=== PATIENT | female | born 1995 | race Caucasian/White ===

== ENCOUNTER → 2016-06-04 | Outpatient (REF) | payer OTHER ==
[~2016-06-04] MED LIST: /AUGM875TA OR; /CELE20CA OR; ACET65TA OR; BIRTH CONTROL PILL PO; No Historical Meds; VICO5TAB OR
== END ==
LOC: M LAB REF 12:58
PROVIDERS: ATTEND Advanced Practice Midwife
DX: Z34.03 Encounter for supervision of normal first pregnancy, third trimester (principal)

== ENCOUNTER 2016-06-23 13:59 | Outpatient (CLI) | payer OTHER ==
[~2016-06-23] VITALS: Ht 175.3 cm; Wt 95.0 kg
[2016-06-23] MEDS ORDERED: PRENTAB55 PO (14:11)
[2016-06-23 14:41] VITALS: BP 112/61
[2016-06-23] MEDS ORDERED: PANTOPRAZOLE 20 MG TAB PO ONE (15:30)
== END 2016-06-23 17:00 | disposition home or self-care (01) ==
LOC: M LDO 13:59
PROVIDERS: ATTEND Advanced Practice Midwife
DX: O47.1 False labor at or after 37 completed weeks of gestation (principal); Z3A.38 38 weeks gestation of pregnancy

== ENCOUNTER 2016-06-23 22:27 | Inpatient (IN) | payer OTHER ==
[~2016-06-23] VITALS: Ht 175.3 cm; Wt 95.0 kg
[~2016-06-23 22:27] MED LIST changes: +PRENTAB55 PO
[2016-06-23] MEDS ORDERED: BUTORPHANOL 2 MG/ML INJ (J0595) IV ONE (23:15)
[2016-06-23] MEDS ORDERED: LACTATED RINGER'S 1000 ML IV ONE (23:15)
[2016-06-23] MEDS ORDERED: PROMETHAZINE INJ 25 MG/ML VIAL (J2550) IM ONE (23:15)
[2016-06-24] VITALS (26 sets, daily range): BP systolic 104–153; BP diastolic 56–84
[2016-06-24] MEDS ORDERED: PROMETHAZINE INJ 25 MG/ML VIAL (J2550) IV ONE (00:30)
[2016-06-24] MEDS ORDERED: LACTATED RINGER'S 1000 ML IV ONE (03:30)
[2016-06-24] MEDS ORDERED: OXYTOCIN 30 UNITS IN 0.9% NaCl 500ML IV BAG (J2590) As Ordered ONE (03:44)
[2016-06-24] MEDS ORDERED: FENTANYL 2MCG/ML ROPIVACAINE 0.2% NACL 250 ML CADD As Ordered ONE (03:44)
[2016-06-24 04:13] LABS: MEAN CORPUSCULAR HEMOGLOBIN 28.4 pg (27.0-33.0); MEAN CORPUSCULAR HGB CONC 32.1 g/dl (32.0-36.5); MEAN CORPUSCULAR VOLUME 88.4 fl (80.0-96.0); RED CELL DISTRIBUTION WIDTH 12.8 % (11.5-14.5); WHITE BLOOD COUNT 12.1 K/mm3 (4.0-10.0)
[2016-06-24] MEDS ORDERED: FENTANYL/ROPIVACAINE/NACL CADD 250 ML EPIDURAL SCH (05:30)
[2016-06-24] MEDS ORDERED: diphenhydrAMINE INJ 50MG/ML VIAL (J1200) IV PRN (05:30)
[2016-06-24] MEDS ORDERED: REFRIGERATOR IV KEYS XX PRN (05:30)
[2016-06-24] MEDS ORDERED: ONDANSETRON 4MG/2ML VIAL (J2405) IV PRN (05:30)
[2016-06-24] MEDS ORDERED: EPIDURAL/PCA KEYS XX PRN (05:30)
[2016-06-24] MEDS ORDERED: ePHEDrine SULFATE 25 MG/5 ML(5MG/ML) SYRINGE IV PRN (05:30)
[2016-06-24] MEDS ORDERED: LACTATED RINGER'S 1000 ML IV PRN (05:30)
[2016-06-24] MEDS ORDERED: EPIDURAL COMMENT XX SCH (05:30)
[2016-06-24] MEDS ORDERED: NALOXONE INJ 0.4 MG/1 ML VIAL (J2310) IV PRN (05:30)
[2016-06-24 07:20] LABS: CORD GAS ABE V -4.1; CORD GAS HCO3 V 21.9 MEQ/L; CORD GAS O2 SAT V 49.1 %; CORD GAS PCO2 V 43.4 mmHg; CORD GAS PH V 7.321 UNITS; CORD GAS PO2 V 22.3 mmHg; CORD GAS SBC V 19.9 MEQ/L; CORD GAS TCO2 V 23.2 MEQ/L
[2016-06-24 07:22] LABS: CORD GAS HCO3 A 19.6 MEQ/L; CORD GAS O2 SAT A 23.6 %; CORD GAS PCO2 A 48.3 mmHg; CORD GAS PH A 7.226 UNITS; CORD GAS SBC A 16.7 MEQ/L; CORD GAS TCO2 A 21.1 MEQ/L
--- NOTE | 2016-06-24 07:25 | HPE ---
DATE OF ADMISSION: Lottie is a 21-year-old 1, para 0 at 38-6/7 weeks gestation with an estimated date of confinement (EDC) of 07/02/2016 based on first trimester ultrasound. She presents to labor and delivery with a complaint of painful regular contractions about every 3-4 minutes, some scant bloody show. Denies leakage of fluid. Fetus has been active. care was initiated at [facility] in the first trimester. course has been uncomplicated. OBSTETRICAL HISTORY: Primigravida. OB LABS: Blood type A positive. Antibody screen negative. Rubella immune. VDRL nonreactive. Urine culture no growth. Hep B surface antigen negative. HIV negative. Hep C antibody nonreactive. Gonorrhea and chlamydia negative. Gestational diabetic screening 105. Group B Streptococcus (GBS) is negative. She did decline all genetic serum screening markers. PAST MEDICAL HISTORY: Childhood varicella. Abnormal Pap smear. SURGERIES: Appendectomy. Left shoulder. Colposcopy. FAMILY HISTORY: Noncontributory. SOCIAL HISTORY: The patient is single. The father of the baby is at bedside and supportive. She is a nonsmoker. Denies alcohol and drug use. She has a history of chlamydia. Her gonorrhea and chlamydia testing during was negative. She denies history of abuse; physical, sexual and emotional. CURRENT MEDICATIONS: Include vitamin ALLERGIES: No known drug allergies. OBJECTIVE: Temperature 98.3, pulse 73, respirations 18, blood pressure 121/60. Alert and oriented, crying, moaning, tensing with her contractions. heart rate 130, moderate variability, positive accelerations, negative decelerations. Mahesh every 2-3 minutes, per CHERELLE Temple, she is 5-6 cm dilated, 100% effaced, and 0 station with bulging bag of water. ASSESSMENT: Intrauterine at 38-6/7 weeks gestation. heart rate category 1, active labor. PLAN: Admit the patient to labor and delivery. Out of bed ad mamta. Labs. IV fluid bolus. The patient does desire an epidural for her labor coping. I do anticipate a normal spontaneous vaginal delivery.
[2016-06-24] MEDS ORDERED: DOCUSATE SODIUM 100 MG CAP PO PRN (07:45)
[2016-06-24] MEDS ORDERED: ANUSOL HC CREAM 30GM TOP PRN (07:45)
[2016-06-24] MEDS ORDERED: MEASLES,MUMPS,RUBELLA VACCINE INJ (MMR-II) (90707) SC SCH (07:45)
[2016-06-24] MEDS ORDERED: DIBUCAINE 1% OINTMENT 30GM TOP PRN (07:45)
[2016-06-24] MEDS ORDERED: METHYLERGONOVINE MALEATE 0.2 MG TAB PO PRN (07:45)
[2016-06-24] MEDS ORDERED: RHOGAM 300 MCG (1500 IU) INJ (J2790) IM SCH (07:45)
[2016-06-24] MEDS ORDERED: OXYTOCIN DRIP 30 UNITS in APPROPRIATE DILUENT 1 EA IV SCH (07:45)
[2016-06-24] MEDS ORDERED: AMPICILLIN SOD/SULBACTAM SOD 3 GM in D5W MINI-BAG PLUS 100 ML IV ONE (08:00)
--- NOTE | 2016-06-24 08:22 | DN ---
DATE: 06/24/2016 Lottie is a 21-year-old, 1, para 1-0-0-1 now, who is admitted to labor and delivery in active labor. She did utilize an epidural for her labor coping. She progressed to full dilation at 0600 hours. She pushed to a normal spontaneous vaginal delivery of a live female in occiput anterior (OA) position with restitution to left occiput transverse (LOT) position at 0704 hours. There was no nuchal cord. The shoulders delivered with gentle downward guidance and the corpus immediately followed. The female was placed on the maternal abdomen crying and active. Her mouth and nares were bulb suctioned. The cord was clamped times two and cut by the maternal sister. Cord gases were obtained. A manual removal of an intact placenta with three-vessel cord was at 0713 hours. Placenta was examined and all the cotyledons were accounted for. Uterine hemostasis was achieved with uterine fundal massage and intravenous (IV) Pitocin rapid infusion. Estimated blood loss 400 mL. Perineum and vagina were inspected. Noted to have bilateral labial lacerations. The right labial was repaired with three interrupted sutures of #3-0 Rapide. [place] female weighed 7 pounds 15 ounces (3606 grams). 9 and 9. Mom is . The family have named her daughter, Bill. At the close of delivery, lap counts, instrument and counts needle counts were correct and verified. [facility]
[2016-06-24] MEDS: PRENATAL VITAMIN TAB PO SCH (09:14)
[2016-06-24] MEDS: IBUPROFEN 800 MG TAB PO PRN (13:59)
[2016-06-24] MEDS: AMPICILLIN SOD/SULBACTAM SOD 3 GM in D5W MINI-BAG PLUS 100 ML IV SCH ×2 (13:59→20:00)
[2016-06-24] MEDS: ACETAMINOPHEN 500 MG TAB PO PRN (21:57)
[2016-06-25] MEDS: AMPICILLIN SOD/SULBACTAM SOD 3 GM in D5W MINI-BAG PLUS 100 ML IV SCH ×2 (01:57→07:39)
[2016-06-25 06:10] VITALS: BP 124/68
[2016-06-25 07:21] LABS: MEAN CORPUSCULAR HEMOGLOBIN 29.2 pg (27.0-33.0); MEAN CORPUSCULAR HGB CONC 33.3 g/dl (32.0-36.5); MEAN CORPUSCULAR VOLUME 87.9 fl (80.0-96.0); RED CELL DISTRIBUTION WIDTH 12.9 % (11.5-14.5); WHITE BLOOD COUNT 15.5 K/mm3 (4.0-10.0)
[2016-06-25] MEDS: PRENATAL VITAMIN TAB PO SCH (07:38)
[2016-06-25] MEDS: IBUPROFEN 800 MG TAB PO PRN (12:23)
[2016-06-25 18:21] VITALS: BP 138/76
[2016-06-25] MEDS: ACETAMINOPHEN 500 MG TAB PO PRN (19:59)
[2016-06-26] MEDS: IBUPROFEN 800 MG TAB PO PRN (00:52)
[2016-06-26 06:10] VITALS: BP 122/81
[2016-06-26] MEDS: PRENATAL VITAMIN TAB PO SCH (09:38)
[2016-06-26] MEDS ORDERED: ACET50TA PO (14:55)
[2016-06-26] MEDS ORDERED: BENA25CA4 PO (15:00)
[2016-06-26] MEDS ORDERED: MOTR200T44 PO (15:00)
[2016-06-26] MEDS ORDERED: COLA100C PO (15:22)
== END 2016-06-26 16:30 | disposition home or self-care (01) | DRG 541 ==
LOC: M LDO 22:27 → M LDI 06-24 03:12 → M OBS 06-24 09:45
PROVIDERS: ADMIT Advanced Practice Midwife; ATTEND Advanced Practice Midwife
PROC: 10E0XZZ Delivery of Products of Conception, External Approach (ICD-10-PCS; principal; 2016-06-24)
PROC: 10D17ZZ Extraction of Products of Conception, Retained, Via Natural or Artificial Opening (ICD-10-PCS; 2016-06-24)
PROC: 0HQ9XZZ Repair Perineum Skin, External Approach (ICD-10-PCS; 2016-06-24)
DX: O73.0 Retained placenta without hemorrhage (principal); O70.0 First degree perineal laceration during delivery; Z37.0 Single live birth; Z3A.38 38 weeks gestation of pregnancy

== ENCOUNTER 2016-08-15 17:16 | Emergency (ER) | payer OTHER ==
[~2016-08-15] VITALS: Ht 175.3 cm; Wt 93.0 kg
[~2016-08-15 17:16] MED LIST changes: +ACET50TA PO; +BENA25CA4 PO; +COLA100C3 PO; +MOTR200T44 PO
[2016-08-15] MEDS ORDERED: SPRI28TA PO (17:23)
[2016-08-15 19:46] LABS: BASO % 0.3 % (0.0-1.0); EOS # 0.1 K/mm3 (0.0-0.50); EOS % 1.8 % (0.0-3.0); LARGE UNSTAINED CELL # 0.1 K/mm3 (0.0-0.4); LARGE UNSTAINED CELL % 1.2 % (0.0-4.0); LYMPH # 1.5 K/mm3 (1.5-6.5); LYMPH % 23.1 % (24.0-44.0); MEAN CORPUSCULAR HEMOGLOBIN 26.7 pg (27.0-33.0); MEAN CORPUSCULAR HGB CONC 31.3 g/dl (32.0-36.5); MEAN CORPUSCULAR VOLUME 85.1 fl (80.0-96.0); MONO # 0.2 K/mm3 (0.0-0.8); NEUTROPHILS # 4.4 K/mm3 (1.8-7.7); NEUTROPHILS % 70.7 % (36.0-66.0); PLATELET COUNT, AUTOMATED 375 k/mm3 (150-450); RED CELL DISTRIBUTION WIDTH 13.6 % (11.5-14.5); WHITE BLOOD COUNT 6.3 K/mm3 (4.0-10.0)
[2016-08-15 20:10] LABS: ALBUMIN 4.1 GM/DL (3.2-5.2); ALBUMIN/GLOBULIN RATIO 1.11 (1.00-1.93); ALKALINE PHOSPHATASE 92 U/L (45-117); ALT/SGPT 17 U/L (12-78); ANION GAP 8 MEQ/L (8-16); AST/SGOT 18 U/L (15-37); BILIRUBIN,TOTAL 0.7 MG/DL (0.2-1.0); BLOOD UREA NITROGEN 11 MG/DL (7-18); CALCIUM LEVEL 8.9 MG/DL (8.5-10.1); CARBON DIOXIDE LEVEL 26 MEQ/L (21-32); CHLORIDE LEVEL 107 MEQ/L (98-107); CREATININE FOR GFR 0.96 MG/DL (0.55-1.02); GLOMERULAR FILTRATION RATE > 60.0 (>60); GLUCOSE, FASTING 103 MG/DL (70-105); POTASSIUM SERUM 3.6 MEQ/L (3.5-5.1); SODIUM LEVEL 141 MEQ/L (136-145); TOTAL PROTEIN 7.8 GM/DL (6.4-8.2)
--- NOTE | 2016-08-15 20:20 | REPUSA ---
HISTORY: Post 8 weeks with heavy bleeding. TECHNIQUE: Realtime sonographic images were obtained in multiple projections. FINDINGS: The uterus is anteverted measuring 9.2 x 5.3 x 7.8 cm. The endometrial echo pattern is within normal limits measuring 13.7 mm. Heterogeneous endometrium with complex fluid seen. There is no evidence of free fluid within the pelvic cul-de-sac. The right ovary measures 2.3 x 2.0 x 1.6 cm and the left ovary measures 2.7 x 2.0 x 1.7 cm. Both ova jose angel are free of solid or cystic mass. There is no evidence for abnormal vascularity. IMPRESSION: Heterogeneous endometrium with complex fluid seen, retained products of conception are not completely excluded. Thank you for your kind referral of this patient. We appreciate the opportunity to participate in th is patient's care.
[2016-08-15 21:31] VITALS: BP 129/76
== END 2016-08-15 21:58 | disposition home or self-care (01) ==
LOC: M ED 19:13
DX: O72.2 Delayed and secondary postpartum hemorrhage (principal)

== ENCOUNTER → 2016-10-30 | Outpatient (REF) | payer OTHER ==
[~2016-10-30] MED LIST changes: -COLA100C3 PO; +COLA100C5 PO; +SPRI28TA PO
[2016-10-31 11:43] LABS: MEAN CORPUSCULAR HEMOGLOBIN 27.8 pg (27.0-33.0); MEAN CORPUSCULAR HGB CONC 32.9 g/dl (32.0-36.5); MEAN CORPUSCULAR VOLUME 84.4 fl (80.0-96.0); WHITE BLOOD COUNT 6.2 K/mm3 (4.0-10.0)
[2016-10-31 12:23] LABS: FREE T4 1.09 NG/DL (0.76-1.46)
== END ==
LOC: M SFHCCLAY 16:32
PROVIDERS: ATTEND Family Medicine
DX: N93.9 Abnormal uterine and vaginal bleeding, unspecified (principal)

== ENCOUNTER → 2016-11-13 | Outpatient (CLI) | payer OTHER ==
[2016-11-13 13:15] LABS: MEAN CORPUSCULAR HEMOGLOBIN 27.6 pg (27.0-33.0); MEAN CORPUSCULAR HGB CONC 32.5 g/dl (32.0-36.5); MEAN CORPUSCULAR VOLUME 84.9 fl (80.0-96.0); RED CELL DISTRIBUTION WIDTH 14.2 % (11.5-14.5); WHITE BLOOD COUNT 4.9 K/mm3 (4.0-10.0)
[2016-11-13 13:44] LABS: FREE T4 0.97 NG/DL (0.76-1.46)
== END ==
LOC: M SMT 09:27
PROVIDERS: ATTEND Advanced Practice Midwife
DX: Z30.8 Encounter for other contraceptive management (principal)

== ENCOUNTER → 2017-03-28 | Outpatient (CLI) | payer OTHER ==
--- NOTE | 2017-03-28 18:24 | REP ---
Clinical: Lower back pain . Technique: AP, lateral, bilateral oblique, and coned-down views. Findings: Alignment and lordosis is maintained. The vertebral bodies including transverse process and spinous processes are intact and normal. There is no evidence for acute fracture / compression injury or subluxation. No evidence for spondylolysis or spondylolisthesis. No significant degenerative change is noted. Impression: Normal lumbosacral spine radiograph series. Signed by Can Browning MD 03/28/2017 06:15 P
== END ==
LOC: M WUC 17:59
PROVIDERS: ATTEND Physician Assistant
DX: M54.5 Low back pain (principal)

== ENCOUNTER → 2017-05-27 | Outpatient (REF) | payer OTHER | LOC: M SFHCCLAY 15:08 | DX: J02.9 Acute pharyngitis, unspecified (principal) ==

== ENCOUNTER → 2017-10-07 | Outpatient (REF) | payer OTHER | LOC: M SFHCLERA 16:53 | DX: J02.9 Acute pharyngitis, unspecified (principal) ==

== ENCOUNTER → 2017-11-10 | Outpatient (CLI) | payer OTHER, MEDICAID | LOC: M LRY 14:26 | DX: S49.91XA Unspecified injury of right shoulder and upper arm, initial encounter (principal); X58.XXXA Exposure to other specified factors, initial encounter; Y92.9 Unspecified place or not applicable | CPT/HCPCS: 73030 ==

== ENCOUNTER → 2018-03-18 | Outpatient (REF) | payer MEDICAID ==
[2018-03-19 11:38] LABS: BASO % 0.3 % (0.0-1.0); EOS # 0.1 10^3/uL (0.0-0.50); EOS % 0.8 % (0.0-3.0); HEMATOCRIT 42.2 % (36.0-47.0); HEMOGLOBIN 14.3 g/dl (12.0-15.5); IMMATURE GRANULOCYTE % 0.4 % (0-3.0); LYMPH # 2.1 10^3/uL (1.5-6.5); MEAN CORPUSCULAR HEMOGLOBIN 31.4 pg (27.0-33.0); MEAN CORPUSCULAR HGB CONC 33.9 g/dl (32.0-36.5); MEAN CORPUSCULAR VOLUME 92.5 fl (80.0-96.0); MONO # 0.7 10^3/uL (0.0-0.8); MONO % 7.2 % (0.0-5.0); NEUTROPHILS # 6.2 10^3/uL (1.8-7.7); NEUTROPHILS % 68.3 % (36.0-66.0); PLATELET COUNT, AUTOMATED 360 10^3/uL (150-450); RED BLOOD COUNT 4.56 10^6/uL (4.00-5.40); RED CELL DISTRIBUTION WIDTH 12.6 % (11.5-14.5)
[2018-03-19 12:01] LABS: ALBUMIN 3.8 GM/DL (3.2-5.2); ALBUMIN/GLOBULIN RATIO 1.12 (1.00-1.93); ALKALINE PHOSPHATASE 72 U/L (45-117); ALT/SGPT 22 U/L (12-78); ANION GAP 6 MEQ/L (8-16); AST/SGOT 19 U/L (7-37); BILIRUBIN,TOTAL 0.5 MG/DL (0.2-1.0); BLOOD UREA NITROGEN 16 MG/DL (7-18); CALCIUM LEVEL 9.1 MG/DL (8.5-10.1); CARBON DIOXIDE LEVEL 28 MEQ/L (21-32); CHLORIDE LEVEL 107 MEQ/L (98-107); CREATININE FOR GFR 0.95 MG/DL (0.55-1.30); GLOMERULAR FILTRATION RATE > 60.0 (>60); GLUCOSE, FASTING 85 MG/DL (70-100); POTASSIUM SERUM 5.4 MEQ/L (3.5-5.1); SODIUM LEVEL 141 MEQ/L (136-145); TOTAL PROTEIN 7.2 GM/DL (6.4-8.2)
== END ==
LOC: M SFHCCLAY 15:31
DX: R89.8 Other abnormal findings in specimens from other organs, systems and tissues (principal)

== ENCOUNTER → 2018-03-31 | Outpatient (REF) | payer MEDICAID | LOC: M SFHCCLAY 09:50 | DX: Z12.4 Encounter for screening for malignant neoplasm of cervix (principal) ==

== ENCOUNTER 2019-04-21 20:21 | Emergency (ER) | payer OTHER ==
[~2019-04-21] VITALS: Ht 172.7 cm; Wt 102.2 kg
[~2019-04-21 20:21] MED LIST changes: -/CELE20CA OR; -ACET50TA PO; +CELE1CAP4 OR; +KETO10TAB PO; +MAPA500T2 PO
[2019-04-21] MEDS ORDERED: PEPC40TA12 PO (20:25)
[2019-04-21 22:03] LABS: BASO % 0.2 % (0.0-1.0); EOS # 0.1 10^3/uL (0.0-0.5); EOS % 0.7 % (0.0-3.0); HEMATOCRIT 41.6 % (36.0-47.0); HEMOGLOBIN 13.5 g/dl (12.0-15.5); LYMPH # 1.9 10^3/uL (1.5-5.0); MEAN CORPUSCULAR HEMOGLOBIN 30.7 pg (27.0-33.0); MEAN CORPUSCULAR HGB CONC 32.5 g/dl (32.0-36.5); MEAN CORPUSCULAR VOLUME 94.5 fl (80.0-96.0); MONO # 0.6 10^3/uL (0.0-0.8); MONO % 7.1 % (0.0-5.0); NEUTROPHILS # 5.9 10^3/uL (1.5-8.5); NEUTROPHILS % 69.8 % (36.0-66.0); PLATELET COUNT, AUTOMATED 279 10^3/uL (150-450); WHITE BLOOD COUNT 8.5 10^3/uL (4.0-10.0)
[2019-04-21 22:34] LABS: BLOOD UREA NITROGEN 13 MG/DL (7-18); CALCIUM LEVEL 8.8 MG/DL (8.5-10.1); CARBON DIOXIDE LEVEL 24 MEQ/L (21-32); CHLORIDE LEVEL 111 MEQ/L (98-107); CREATININE FOR GFR 0.94 MG/DL (0.55-1.30); GLOMERULAR FILTRATION RATE > 60.0 (>60); GLUCOSE, FASTING 88 MG/DL (70-100); HCG, SERUM QUANTITATIVE 5283 MIU/ML; POTASSIUM SERUM 3.7 MEQ/L (3.5-5.1); SODIUM LEVEL 140 MEQ/L (136-145)
[2019-04-21 23:56] VITALS: BP 113/57
--- NOTE | 2019-04-22 00:14 | REPVR ---
PROCEDURE INFORMATION: Exam: US First Trimester, Transabdominal Exam date and time: 04/21/2019 11:38 PM Age: 23 years old Clinical indication: Lmp or gestational age (in weeks): 6w5d; Antepartum complications; Bleeding; ; Additional info: Vaginal bleeding after urinating, resolved, bloated, +hcg TECHNIQUE: Imaging protocol: Real-time transabdominal obstetrical ultrasound of the maternal pelvis and a first trimester , less than 14 weeks 0 days, with image documentation. COMPARISON: US OBS FOLL UP OR REPEAT EACH GES 04/03/2016 2:57 PM FINDINGS: GESTATION: Gestation: Living intrauterine gestation. Yolk sac is unremarkable. Heart rate: 157 bpm. Placenta: Unremarkable. No subchorionic bleed. Amniotic fluid: Amniotic and chorionic fluid are normal for gestational age. BIOMETRY: Estimated gestational age: 6 weeks 5 days. Carmi-Rump length: 0.8 cm. MATERNAL: Uterus: Unremarkable. Cervix: Unremarkable. Right adnexa: Unremarkable. Left adnexa: Unremarkable. Intraperitoneal: No intraperitoneal free fluid. IMPRESSION: Single living intrauterine fetus with estimated gestational age of 6 weeks 5 days. No abnormalities are seen. Electronically signed by: Andrea Davies On 04/22/2019 00:13:53 AM
== END 2019-04-22 00:04 | disposition home or self-care (01) ==
LOC: M ED 20:21
DX: O26.851 Spotting complicating pregnancy, first trimester (principal); Z3A.01 Less than 8 weeks gestation of pregnancy; Z79.899 Other long term (current) drug therapy

== ENCOUNTER 2019-04-26 18:33 | Emergency (ER) | payer OTHER ==
[~2019-04-26] VITALS: Ht 172.7 cm; Wt 103.7 kg
[~2019-04-26 18:33] MED LIST changes: +PEPC40TA12 PO
[2019-04-26 20:00] LABS: BASO % 0.5 % (0.0-1.0); EOS # 0.1 10^3/uL (0.0-0.5); HEMATOCRIT 39.7 % (36.0-47.0); LYMPH # 1.9 10^3/uL (1.5-5.0); LYMPH % 31.4 % (24.0-44.0); MEAN CORPUSCULAR HEMOGLOBIN 30.9 pg (27.0-33.0); MEAN CORPUSCULAR HGB CONC 32.7 g/dl (32.0-36.5); MEAN CORPUSCULAR VOLUME 94.3 fl (80.0-96.0); MONO # 0.6 10^3/uL (0.0-0.8); MONO % 9.3 % (0.0-5.0); NEUTROPHILS # 3.5 10^3/uL (1.5-8.5); NEUTROPHILS % 56.6 % (36.0-66.0); PLATELET COUNT, AUTOMATED 278 10^3/uL (150-450); RED BLOOD COUNT 4.21 10^6/uL (4.00-5.40); WHITE BLOOD COUNT 6.2 10^3/uL (4.0-10.0)
[2019-04-26 20:24] LABS: BLOOD UREA NITROGEN 11 MG/DL (7-18); CALCIUM LEVEL 8.8 MG/DL (8.5-10.1); CARBON DIOXIDE LEVEL 27 MEQ/L (21-32); CHLORIDE LEVEL 105 MEQ/L (98-107); CREATININE FOR GFR 1.06 MG/DL (0.55-1.30); GLOMERULAR FILTRATION RATE > 60.0 (>60); GLUCOSE, FASTING 91 MG/DL (70-100); HCG, SERUM QUANTITATIVE 659 MIU/ML; POTASSIUM SERUM 4.3 MEQ/L (3.5-5.1); SODIUM LEVEL 142 MEQ/L (136-145)
[2019-04-26 20:29] VITALS: BP 127/73
== END 2019-04-26 20:56 | disposition home or self-care (01) ==
LOC: M ED 20:48
DX: O03.4 Incomplete spontaneous abortion without complication (principal); Z79.899 Other long term (current) drug therapy

== ENCOUNTER → 2019-05-14 | Outpatient (REF) | payer OTHER | LOC: M PLALAB 08:57 | PROVIDERS: ATTEND Advanced Practice Midwife | DX: O03.9 Complete or unspecified spontaneous abortion without complication (principal) ==

== ENCOUNTER 2019-09-01 13:30 | Outpatient (RCR) | payer OTHER | END 2019-09-02 | LOC: M PT 13:30 | PROVIDERS: ATTEND Nurse Practitioner Family | DX: M25.532 Pain in left wrist (principal) ==

== ENCOUNTER 2019-09-09 13:40 | Outpatient (RCR) | payer OTHER | END 2019-10-03 | LOC: M PT 13:40 | PROVIDERS: ATTEND Nurse Practitioner Family | DX: Z51.89 Encounter for other specified aftercare (principal); M25.532 Pain in left wrist ==

== ENCOUNTER → 2020-07-18 | Outpatient (CLI) | payer SELFPAY | LOC: M LABSMTC 10:13 | PROVIDERS: ATTEND Pediatrics | DX: Z11.52 Encounter for screening for COVID-19 (principal) ==

== ENCOUNTER 2020-10-04 13:26 | Emergency (ER) | payer OTHER ==
[~2020-10-04] VITALS: Ht 172.7 cm; Wt 94.5 kg
[2020-10-04] MEDS ORDERED: HYDR-3363 (13:33)
[2020-10-04] MEDS ORDERED: SERT50TA29 (13:33)
[2020-10-04] MEDS ORDERED: NS 1,000 ML IV ONE (14:55)
[2020-10-04] MEDS ORDERED: ISOVUE-370 76% 100ML VIAL As Ordered ONE (15:01)
[2020-10-04 15:42] LABS: BASO % 0.1 % (0.0-1.0); EOS # 0.1 10^3/uL (0.0-0.5); EOS % 0.7 % (0.0-3.0); HEMATOCRIT 42.7 % (36.0-47.0); HEMOGLOBIN 13.9 g/dl (12.0-15.5); LYMPH % 29.5 % (24.0-44.0); MEAN CORPUSCULAR HEMOGLOBIN 30.9 pg (27.0-33.0); MEAN CORPUSCULAR HGB CONC 32.6 g/dl (32.0-36.5); MEAN CORPUSCULAR VOLUME 94.9 fl (80.0-96.0); MONO # 0.4 10^3/uL (0.0-0.8); NEUTROPHILS # 4.3 10^3/uL (1.5-8.5); NEUTROPHILS % 63.4 % (36.0-66.0); PLATELET COUNT, AUTOMATED 271 10^3/uL (150-450); WHITE BLOOD COUNT 6.9 10^3/uL (4.0-10.0)
--- NOTE | 2020-10-04 16:21 | REP ---
INDICATION: cp with sob r/o pe, also assess known intra thoracic mass COMPARISON: Noncontrast chest CT dated 03/28/2020 TECHNIQUE: Axial contrast enhanced images from the thoracic inlet to the upper abdomen using pulmonary embolus technique with multiplanar re-formations. 75 ml Isovue 370 intravenous contrast material administered without complication. This CT examination was performed using the following dose reduction techniques: Automated exposure control, adjustment of mA and/or kv according to the patient's size, and use of iterative reconstruction technique. FINDINGS: Satisfactory enhancement of the pulmonary vasculature is achieved and no filling defects are identified to suggest pulmonary embolus. Further evaluation of the mediastinum demonstrates normal thoracic aorta, heart and pericardium. The bilateral lung yu are well aerated and clear without acute consolidation, pleural effusion or pneumothorax. Calcified lymph nodes suggest prior granulomatous disease. Tracheobronchial tree is patent. No nodule or mass lesion is identified. No adenopathy noted. Surrounding musculoskeletal structures intact IMPRESSION: No evidence for pulmonary embolus. No acute mediastinal or pleural parenchymal process. Evidence for prior granulomatous disease. <Electronically signed by Can Browning > 10/04/20 [id number]
[2020-10-04 17:14] LABS: CK-MB VALUE MASS < 1.0 NG/ML (<3.6); CPK CREATINE PHOSPHOKINASE 130 U/L (26-192); MB/CK RELATIVE INDEX 0.77 (< OR =4); TROPONIN I < 0.02 NG/ML (< 0.10)
[2020-10-04] MEDS ORDERED: NAPR-885 PO (17:29)
[2020-10-04 18:01] VITALS: BP 127/76
--- NOTE | 2020-10-04 20:57 | ECGEPIP ---
[facility] - ED Test Date: 2020-10-04 Pat Name: RAFFI EDWARDS Department: Room: - Gender: Female Division Human Resources Manager: WILNER : 1995 Requested By: Luci Mclaughlin Order Number: [id number] Reading MD: Luci Mclaughlin Measurements Intervals [place] Rate: 59 P: 72 FL: 150 QRS: 37 QRSD: 86 T: 54 QT: 414 QTc: 409 Interpretive Statements Sinus bradycardia with sinus arrhythmia Low voltage QRS Cannot rule out Anterior infarct , age undetermined Electronically Signed on 10-04-2020 20:57:04 EDT by Luci Mclaughlin
== END 2020-10-04 18:03 | disposition home or self-care (01) ==
LOC: M ED 13:26
DX: R07.89 Other chest pain (principal); R00.1 Bradycardia, unspecified; Z79.899 Other long term (current) drug therapy
CPT/HCPCS: 71275; 80047; 82550; 82553; 84702; 85025; 93005; 96360; 96361; 99284; Q9967

== ENCOUNTER → 2020-10-31 | Outpatient (CLI) | payer OTHER ==
[~2020-10-31] MED LIST changes: +HYDR-3363; +NAPR-885 PO; +SERT50TA29
== END ==
LOC: M LAB 18:27
PROVIDERS: ATTEND Obstetrics & Gynecology
DX: R10.2 Pelvic and perineal pain (principal)

== ENCOUNTER → 2020-10-31 | Outpatient (REF) | payer OTHER | LOC: M PLALAB 16:43 | PROVIDERS: ATTEND Obstetrics & Gynecology | DX: R10.2 Pelvic and perineal pain (principal); Z53.9 Procedure and treatment not carried out, unspecified reason ==

== ENCOUNTER → 2020-11-02 | Outpatient (CLI) | payer OTHER | LOC: M LAB 17:57 | PROVIDERS: ATTEND Obstetrics & Gynecology | DX: R10.2 Pelvic and perineal pain (principal) ==

== ENCOUNTER → 2020-11-20 | Outpatient (CLI) | payer OTHER ==
[2020-11-20 15:38] LABS: HEMATOCRIT 39.1 % (36.0-47.0); MEAN CORPUSCULAR HEMOGLOBIN 31.2 pg (27.0-33.0); MEAN CORPUSCULAR HGB CONC 33.2 g/dl (32.0-36.5); MEAN CORPUSCULAR VOLUME 93.8 fl (80.0-96.0); PLATELET COUNT, AUTOMATED 303 10^3/uL (150-450); RED BLOOD COUNT 4.17 10^6/uL (4.00-5.40); WHITE BLOOD COUNT 8.1 10^3/uL (4.0-10.0)
[2020-11-20 16:59] LABS: HIV 1&2 SCREEN CENTAUR NEGATIVE (NEGATIVE)
[2020-11-22 12:39] LABS: GC DNA AMPLIFICATION NEGATIVE (NEGATIVE)
== END ==
LOC: M PLALAB 13:52
PROVIDERS: ATTEND Advanced Practice Midwife
DX: Z34.91 Encounter for supervision of normal pregnancy, unspecified, first trimester (principal); Z36.89 Encounter for other specified antenatal screening

== ENCOUNTER → 2020-12-19 | Outpatient (CLI) | payer OTHER | LOC: M PLALAB 13:58 | PROVIDERS: ATTEND Obstetrics & Gynecology | DX: Z34.81 Encounter for supervision of other normal pregnancy, first trimester (principal); Z3A.00 Weeks of gestation of pregnancy not specified ==

== ENCOUNTER → 2020-12-19 | Outpatient (CLI) | payer OTHER | LOC: M WHC 13:14 | PROVIDERS: ATTEND Obstetrics & Gynecology | DX: Z34.81 Encounter for supervision of other normal pregnancy, first trimester (principal); Z3A.13 13 weeks gestation of pregnancy ==

== ENCOUNTER → 2021-01-12 | Outpatient (REF) | payer OTHER ==
[2021-01-12 17:39] LABS: AMORPHOUS SEDIMENT SMALL (NEGATIVE); APPEARANCE, URINE TURBID (CLEAR); BACTERIA, URINE AUTO NEGATIVE (NEGATIVE); BILIRUBIN, URINE AUTO NEGATIVE (NEGATIVE); BLOOD, URINE BLOOD NEGATIVE (NEGATIVE); COLOR, URINE AMBER (YELLOW); GLUCOSE, URINE (UA) AUTO NEGATIVE (NEGATIVE); KETONE, URINE AUTO 1+ mg/dL (NEGATIVE); LEUKOCYTE ESTERASE, URINE AUTO NEGATIVE (NEGATIVE); MUCUS, URINE SMALL (NEGATIVE); NITRITE, URINE AUTO NEGATIVE (NEGATIVE); PROTEIN, URINE AUTO NEGATIVE (NEGATIVE); RBC, URINE AUTO 0 /HPF (0-3); SPECIFIC GRAVITY URINE AUTO 1.027 (1.002-1.035); SQUAMOUS EPITHELIAL CELL UR AU 7 /HPF (0-6); WBC, URINE AUTO 0 /HPF (0-3)
== END ==
LOC: M SFHCWAGY 16:53
PROVIDERS: ATTEND Advanced Practice Midwife
DX: O26.892 Other specified pregnancy related conditions, second trimester (principal); Z36.89 Encounter for other specified antenatal screening; Z3A.00 Weeks of gestation of pregnancy not specified

== ENCOUNTER → 2021-01-29 | Outpatient (CLI) | payer OTHER ==
--- NOTE | 2021-01-29 10:13 | REP ---
INDICATION: ANATOMY COMPARISON: None. TECHNIQUE: Transabdominal obstetrical ultrasound with color Doppler evaluation. FINDINGS: Examination demonstrates a single live intrauterine in variable presentation. motion is identified by technologist. Placenta is noted anterior/fundal grade 0 and grade without evidence for placenta previa or abruption. Amniotic fluid volume is normal. Cervix measures 3.1 cm in length and appears closed.. Selected gestational age: 19 weeks 5 days with ABIGAIL 06/20/2021. Gestational age by current measurements 19 weeks 3 days with ABIGAIL 06/22/2021. FHR equals 144 beats per minute. BPD: 4.4 cm at 19 weeks 1 day HC: 16.5 cm at 19 weeks 1 day AC: 14.4 cm at 19 weeks 5 days FL: 3.0 cm at 19 weeks 1 day HL: 3.0 cm at 19 weeks 6 days HC/AC: 1.14 Estimated weight 292 grams (31stpercentile). Anatomical assessment demonstrates normal structures including cranium, choroid plexus, cavum, cerebellum/posterior fossa, lungs, four-chamber heart/ventricular outflow tracts, diaphragm, stomach, cord insertion/three-vessel cord, kidneys/bladder, spine, and extremities. IMPRESSION: 1. Single live intrauterine in variable presentation demonstrating appropriate interval growth. 2. Limited evaluation of the facial profile and nose/lips. Remainder of the anatomical assessment is complete and normal. <Electronically signed by Can Browning > 01/29/21 1010
== END ==
LOC: M WHC 09:09
PROVIDERS: ATTEND Obstetrics & Gynecology
DX: Z36.89 Encounter for other specified antenatal screening (principal); Z3A.19 19 weeks gestation of pregnancy

== ENCOUNTER → 2021-02-23 | Outpatient (CLI) | payer OTHER ==
--- NOTE | 2021-02-25 06:54 | REP ---
INDICATION: ANATOMY F/U COMPARISON: 01/29/2021 TECHNIQUE: Transabdominal obstetrical ultrasound with color Doppler evaluation. FINDINGS: Examination demonstrates a single live intrauterine in breech presentation. motion is identified by technologist. Placenta is noted posterior and grade 1 without evidence for placenta previa or abruption. Amniotic fluid volume is normal. Cervix measures 4.6 cm in length and appears closed.. Selected gestational age: 23 weeks 2 days with ABIGAIL 06/20/2021. Gestational age by current measurements 22 weeks 5 with ABIGAIL days 06/24/2021. FHR equals 138 beats per minute. Estimated weight 563 grams (34thpercentile). Anatomical assessment demonstrates normal structures including cranium, choroid plexus, cavum, cerebellum/posterior fossa, facial features, lungs, four-chamber heart/ventricular outflow tracts, diaphragm, stomach, cord insertion/three-vessel cord, kidneys/bladder, spine, and upper extremities. IMPRESSION: In conjunction with prior examination anatomical assessment is complete and normal. No gross abnormalities are identified. <Electronically signed by Can Browning > 02/25/21 0618
== END ==
LOC: M RAD 09:50
PROVIDERS: ATTEND Obstetrics & Gynecology
DX: Z36.2 Encounter for other antenatal screening follow-up (principal); Z3A.23 23 weeks gestation of pregnancy

== ENCOUNTER → 2021-04-17 | Outpatient (CLI) | payer OTHER ==
[~2021-04-17] MED LIST changes: +ACET325C5 PO
[2021-04-17 17:47] LABS: HEMATOCRIT 35.2 % (36.0-47.0); HEMOGLOBIN 11.4 g/dl (12.0-15.5); MEAN CORPUSCULAR HEMOGLOBIN 30.6 pg (27.0-33.0); MEAN CORPUSCULAR HGB CONC 32.4 g/dl (32.0-36.5); MEAN CORPUSCULAR VOLUME 94.6 fl (80.0-96.0); PLATELET COUNT, AUTOMATED 281 10^3/uL (150-450); RED BLOOD COUNT 3.72 10^6/uL (4.00-5.40); WHITE BLOOD COUNT 12.5 10^3/uL (4.0-10.0)
[2021-04-17 21:55] LABS: GC DNA AMPLIFICATION NEGATIVE (NEGATIVE)
== END ==
LOC: M PLALAB 13:06
PROVIDERS: ATTEND Advanced Practice Midwife
DX: Z36.89 Encounter for other specified antenatal screening (principal); Z3A.21 21 weeks gestation of pregnancy

== ENCOUNTER → 2021-05-25 | Outpatient (REF) | payer OTHER ==
[~2021-05-25] MED LIST changes: -ACET325C5 PO
== END ==
LOC: M SFHCWAGY 16:41
PROVIDERS: ATTEND Advanced Practice Midwife
DX: Z34.93 Encounter for supervision of normal pregnancy, unspecified, third trimester (principal)

== ENCOUNTER → 2021-10-16 | Outpatient (CLI) | payer OTHER ==
[~2021-10-16] MED LIST changes: +ACET325C5 PO; +ISOVUE-370 76% 100ML VIAL As Ordered ONE
== END ==
LOC: M RAD 08:29
PROVIDERS: ATTEND Thoracic Surgery (Cardiothoracic Vascular Surgery)
DX: Q24.8 Other specified congenital malformations of heart (principal)
CPT/HCPCS: 71260; Q9967

== ENCOUNTER → 2022-11-01 | Outpatient (CLI) | payer OTHER ==
[~2022-11-01] MED LIST changes: -ISOVUE-370 76% 100ML VIAL As Ordered ONE
== END ==
LOC: M PLAIMG 13:28
PROVIDERS: ATTEND Thoracic Surgery (Cardiothoracic Vascular Surgery)
DX: Q24.8 Other specified congenital malformations of heart (principal)

== ENCOUNTER → 2024-02-05 | Outpatient (CLI) | payer OTHER | LOC: M RAD 11:32 | PROVIDERS: ATTEND Surgery | DX: R10.11 Right upper quadrant pain (principal); K82.8 Other specified diseases of gallbladder | CPT/HCPCS: 78227; A9537 ==

== ENCOUNTER 2024-04-15 06:05 | Day surgery (SDC) | payer OTHER ==
[~2024-04-15] VITALS: Ht 175.3 cm; Wt 93.8 kg
[~2024-04-15 06:05] MED LIST changes: +FAMO40TA3 PO; +NORE1TAB73 PO
[2024-04-15] MEDS ORDERED: LR 1,000 ML IV SCH (06:35)
[2024-04-15] MEDS ORDERED: propofoL 200 MG/20 ML VIAL As Ordered ONE (07:21)
[2024-04-15] MEDS ORDERED: LIDOCAINE 2% 100MG/5ML SDV (FOR ANES.) As Ordered ONE (07:21)
[2024-04-15] MEDS ORDERED: ROCURONIUM BROMIDE 50MG/5ML VIAL As Ordered ONE (07:21)
[2024-04-15] MEDS ORDERED: fentaNYL 250 MCG/5 ML INJECTION As Ordered ONE (07:22)
[2024-04-15] MEDS ORDERED: MIDAZOLAM INJ 2MG/2ML VIAL As Ordered ONE (07:22)
[2024-04-15] MEDS ORDERED: ONDANSETRON 4MG 2ML VIAL As Ordered ONE (07:58)
[2024-04-15] MEDS ORDERED: ACETAMINOPHEN 1000MG/100ML IV BAG As Ordered ONE (07:58)
[2024-04-15] MEDS ORDERED: KETOROLAC 60MG 2ML VIAL As Ordered ONE (07:58)
[2024-04-15] MEDS ORDERED: SUGAMMADEX SODIUM 500 MG/5 ML VIAL (BRIDION) As Ordered ONE (07:58)
[2024-04-15] MEDS ORDERED: fentaNYL 100 MCG/2 ML INJECTION IV PRN (08:30)
[2024-04-15] MEDS ORDERED: ONDANSETRON 4MG 2ML VIAL IV PRN (08:30)
[2024-04-15] MEDS: MORPHINE 2 MG/ML 1ML VIAL IV PRN (08:42)
[2024-04-15] MEDS: oxyCODONE 5MG TAB PO PRN (08:50)
[2024-04-15] MEDS ORDERED: NORCO, ANEXSIA 5/325MG TABLET (HYDROcodone/ACETAMINOPHEN) PO PRN (09:05)
[2024-04-15 10:06] VITALS: BP 124/70; TEMP 97; O2SAT 96
== END 2024-04-15 10:24 | disposition home or self-care (01) ==
LOC: M SDC 06:05
PROVIDERS: ATTEND Surgery
DX: K81.1 Chronic cholecystitis (principal); N28.1 Cyst of kidney, acquired; K21.9 Gastro-esophageal reflux disease without esophagitis; Z79.899 Other long term (current) drug therapy; Z79.3 Long term (current) use of hormonal contraceptives; Z90.49 Acquired absence of other specified parts of digestive tract
CPT/HCPCS: 47562; 81025; 88304; J0131; J0665; J1100; J1885; J2250; J2405; J3010; S2900